=== PATIENT | male | born 1995 | race Caucasian/White ===

== ENCOUNTER 2021-03-14 19:32 | Emergency (ER) | payer OTHER ==
[~2021-03-14] VITALS: Ht 188 cm; Wt 72.6 kg
[2021-03-14] MEDS ORDERED: AMOCLA875 PO (19:42)
== END 2021-03-14 19:48 | disposition home or self-care (01) ==
LOC: ER 19:32
DX: K04.7 Periapical abscess without sinus (principal); K02.9 Dental caries, unspecified
CPT/HCPCS: 99282; A9270